=== PATIENT | male | born 1940 | race Hispanic/Latino ===

== ENCOUNTER → 2017-11-10 | Outpatient (CLI) | payer OTHER ==
[~2017-11-10] MED LIST: AEC81 PO; LOSA25TA21 PO; PRAS10TA6 PO; PRAV20TA4 PO; REGADENOSON 0.4 MG/5 ML PF SYG IVP SCH
== END | disposition home or self-care (01) ==
LOC: SHCH 08:57
PROVIDERS: ATTEND Internal Medicine Cardiovascular Disease
DX: Z01.810 Encounter for preprocedural cardiovascular examination (principal); I25.10 Atherosclerotic heart disease of native coronary artery without angina pectoris
CPT/HCPCS: 78452; 93017; 96374; A9500 ×2; J2785

== ENCOUNTER → 2022-08-12 | Outpatient (CLI) | payer OTHER ==
[~2022-08-12] MED LIST changes: -AEC81 PO; +ASPI-1012 PO; +ATOR10TA69 PO; +HYDR-4457 PO; +LOSA100T59 PO; -LOSA25TA21 PO; +METO25TA3 PO; -PRAS10TA6 PO; -PRAV20TA4 PO; +REGADENOSON 0.4 MG/5 ML PF SYG IVP ONE; -REGADENOSON 0.4 MG/5 ML PF SYG IVP SCH
== END | disposition home or self-care (01) ==
LOC: SHCH 08:03
PROVIDERS: ATTEND Internal Medicine Cardiovascular Disease
DX: I25.10 Atherosclerotic heart disease of native coronary artery without angina pectoris (principal); I10 Essential (primary) hypertension; E78.00 Pure hypercholesterolemia, unspecified; Z95.5 Presence of coronary angioplasty implant and graft; Z79.899 Other long term (current) drug therapy
CPT/HCPCS: 78452; 93017; J2785; A9500 ×2; 96374

== ENCOUNTER → 2024-06-13 | Outpatient (CLI) | payer OTHER ==
[~2024-06-13] MED LIST changes: +ASPI-1005 PO; -ASPI-1012 PO; -ATOR10TA69 PO; +DAPA10TA PO; -HYDR-4457 PO; -LOSA100T59 PO; +METO-408 PO; -METO25TA3 PO; +OLME20TA68 PO; +PRAV40TA3 PO; -REGADENOSON 0.4 MG/5 ML PF SYG IVP ONE; +TICA90TA PO
[2024-06-13 12:23] LABS: BASOPHILS # (AUTO) 0.07 K/uL (0.00-0.20); BASOPHILS % (AUTO) 0.6 % (0.0-5.0); EOSINOPHILS # (AUTO) 0.61 K/uL (0.00-0.70); EOSINOPHILS % (AUTO) 5.2 % (0.0-8.0); HEMATOCRIT 51.6 % (42-54); IMMATURE GRANULOCYTE ABSOLUTE 0.06 K/uL (0-1); LYMPHOCYTES # (AUTO) 3.6 K/uL (1.0-4.8); MEAN CORPUSCULAR HEMOGLOBIN 27.4 pg (27.0-33.0); MEAN CORPUSCULAR VOLUME 85.6 fL (79-99); MONOCYTES # (AUTO) 0.8 K/uL (0.1-1.0); MONOCYTES % (AUTO) 7.2 % (3.0-13.0); NEUTROPHILS # (AUTO) 6.5 K/uL (1.8-7.7); NEUTROPHILS % (AUTO) 55.5 % (40.0-77.0); PLATELET COUNT (AUTO) 253 K/uL (130-400); RED BLOOD CELL COUNT(AUTO) 6.03 MIL/uL (4.50-6.20); RED CELL DISTRIBUTION WIDTH 14.3 % (11.0-15.5); WHITE BLOOD COUNT (AUTO) 11.7 K/uL (4.8-10.8)
[2024-06-13 12:42] LABS: CREATININE 1.7 mg/dL (0.5-1.3); POTASSIUM 4.5 mmol/L (3.5-5.1)
== END | disposition home or self-care (01) ==
LOC: LAB 06-09 14:27
PROVIDERS: ATTEND Internal Medicine Cardiovascular Disease
DX: I25.10 Atherosclerotic heart disease of native coronary artery without angina pectoris (principal); E78.5 Hyperlipidemia, unspecified
CPT/HCPCS: 36415; 80048; 80061; 83880; 85025

== ENCOUNTER → 2024-06-20 | Outpatient (CLI) | payer OTHER | END | disposition home or self-care (01) | LOC: LAB 08:35 | PROVIDERS: ATTEND Internal Medicine Cardiovascular Disease | DX: I25.10 Atherosclerotic heart disease of native coronary artery without angina pectoris (principal) | CPT/HCPCS: 36415; 83880 ==

== ENCOUNTER → 2024-08-03 | Outpatient (CLI) | payer OTHER ==
--- NOTE | 2024-08-03 16:38 | HMCIMG ---
CT CHEST WITHOUT CONTRAST INDICATION: COPD, dyspnea TECHNIQUE: Routine axial images using 5 mm slice thickness were acquired from the lung apices to the bases without the administration of IV contrast.Coronal and sagittal reformatted images acquired for interpretation. CT was performed with one or more of the following dose reduction techniques: Automated exposure control, adjustment of the mA and/or kV according to patient size, or use of iterative reconstruction technique. COMPARISON: None FINDINGS: The heart size is normal. Coronary arterial wall calcific plaque noted. No pericardial effusion noted. The visualized great vessels and thoracic aorta are within normal limits. The trachea and airways are patent. No evidence for peribronchial thickening or bronchiectasis, including no evidence for mucous plugging. Generalized bilateral subpleural scarring/reticulations without any subpleural cystic changes, some of which could represent residual from prior COVID or other pneumonia. Interspersed "ground-glass" opacities within the upper lungs greater than lower lungs. No evidence for consolidation or cavitary lesion. No evidence for any discrete pulmonary nodule/mass. No axillary, hilar, or mediastinal lymphadenopathy. No pleural effusion or pneumothorax identified. A couple of small simple left renal cysts. Mild thoracic spondylosis. IMPRESSION: No comparison CT imaging provided at time of interpretation. Findings suggesting sequela of prior pneumonia or alternatively, evolving or resolving nonspecific interstitial or other nontypical pneumonia, predominantly involving the upper lungs greater than lower lungs.
== END | disposition home or self-care (01) ==
LOC: RAH 14:13
PROVIDERS: ATTEND Family Medicine
DX: J44.9 Chronic obstructive pulmonary disease, unspecified (principal); R06.00 Dyspnea, unspecified; R19.8 Other specified symptoms and signs involving the digestive system and abdomen; N28.1 Cyst of kidney, acquired; I25.10 Atherosclerotic heart disease of native coronary artery without angina pectoris; M47.814 Spondylosis without myelopathy or radiculopathy, thoracic region
CPT/HCPCS: 71250